=== PATIENT | female | born 1980 | race Caucasian/White ===

== ENCOUNTER → 2016-12-20 | Day surgery (SDC) | payer BC | END | disposition home or self-care (01) | LOC: JRADIR 09:01 | PROVIDERS: ATTEND Obstetrics & Gynecology Gynecology | PROC: BU18YZZ Fluoroscopy of Uterus and Fallopian Tubes using Other Contrast (ICD-10-PCS; principal; 2016-12-20) | DX: N80.9 Endometriosis, unspecified (principal); N70.11 Chronic salpingitis | CPT/HCPCS: 58340; 74740-TC; 76000-TC; 84703; Q9967 ==

== ENCOUNTER 2024-04-24 06:00 | Day surgery (SDC) | payer BC ==
[2024-04-15 15:40] VITALS: BMI 29.2
[2024-04-24] MEDS ORDERED: MIDAZOLAM HCL 2 MG/2 ML SINGLE DOSE VIAL ONE (07:08)
[2024-04-24] MEDS ORDERED: PROPOFOL 40 ML ONE (07:08)
[2024-04-24] MEDS ORDERED: BUPIVACAINE HCL/EPINEPHRINE/PF 30 ML VIAL IJ ONE (07:18)
[2024-04-24] MEDS: BUPIVACAINE 0.25% /EPI 1:200,000 10 ML VIAL INF ONE (08:09)
[2024-04-24] MEDS ORDERED: ceFAZolin SODIUM 1 GM VIAL ONE ×2 (08:12→08:13)
[2024-04-24] MEDS ORDERED: LIDOCAINE HCL/PF 2% SDV 5ML VIAL ONE (08:13)
[2024-04-24] MEDS ORDERED: DEXAMETHASONE SOD PHOSPHATE 4 MG/1 ML VIAL ONE (08:13)
[2024-04-24] MEDS ORDERED: ONDANSETRON 4 MG/2 ML VIAL ONE (08:13)
[2024-04-24] MEDS ORDERED: ONDANSETRON 4 MG/2 ML VIAL IVPUSH PRN (09:03)
[2024-04-24] MEDS ORDERED: oxyCODONE HCL 5 MG TABLET PO PRN (09:03)
[2024-04-24] MEDS ORDERED: LACTATED RINGERS SOLUTION 1,000 ML IV SCH (09:15)
[2024-04-24] MEDS ORDERED: FENTANYL CITRATE/PF 50 MCG/ML VIAL ONE (09:28)
[2024-04-24 10:29] VITALS: RESP 18; TEMP 97.1
[2024-04-24 10:49] VITALS: BP 119/71; PULSE 85
== END 2024-04-24 11:30 | disposition home or self-care (01) ==
LOC: FASU 06:00
PROVIDERS: ATTEND Orthopaedic Surgery Sports Medicine
PROC: 0LN30ZZ Release Right Upper Arm Tendon, Open Approach (ICD-10-PCS; principal; 2024-04-24 08:09)
DX: M77.11 Lateral epicondylitis, right elbow (principal)
CPT/HCPCS: 81025; 94760

== ENCOUNTER 2024-09-11 07:33 | Day surgery (SDC) | payer BC, OTHER ==
[2024-09-02 15:34] VITALS: BMI 30.2
[2024-09-11] MEDS ORDERED: PROPOFOL 20 ML ONE (07:59)
[2024-09-11] MEDS ORDERED: MIDAZOLAM HCL 2 MG/2 ML SINGLE DOSE VIAL ONE ×2 (07:59→08:39)
[2024-09-11] MEDS ORDERED: LIDOCAINE 1%/EPI 1:100000 (20 ML MULTI DOSE VIAL) ONE (08:37)
[2024-09-11] MEDS ORDERED: DEXAMETHASONE SOD PHOSPHATE 4 MG/1 ML VIAL ONE (08:41)
[2024-09-11] MEDS ORDERED: KETOROLAC TROMETHAMINE 30 MG/1 ML VIAL ONE (08:41)
[2024-09-11] MEDS ORDERED: ONDANSETRON 4 MG/2 ML VIAL ONE (08:41)
[2024-09-11 09:40] VITALS: PULSE 69; TEMP 97.4
[2024-09-11 10:02] VITALS: BP 114/64; RESP 18
== END 2024-09-11 10:07 | disposition home or self-care (01) ==
LOC: FASU 07:33
PROVIDERS: ATTEND Orthopaedic Surgery Sports Medicine
PROC: 01N50ZZ Release Median Nerve, Open Approach (ICD-10-PCS; principal; 2024-09-11 08:48)
DX: G56.01 Carpal tunnel syndrome, right upper limb (principal)